=== PATIENT | female | born 1960 | race Caucasian/White ===

== ENCOUNTER 2017-09-26 08:28 | Inpatient (IN) | payer BC ==
[~2017-09-26] VITALS: Ht 162.6 cm; Wt 63.5 kg
[2017-09-26] MEDS ORDERED: DOXY100C2 PO ×2 (08:42→13:44)
[2017-09-26] MEDS ORDERED: D-ME473S63 PO (08:42)
[2017-09-26] MEDS ORDERED: GUAI118S20 PO (08:42)
[2017-09-26] MEDS ORDERED: ALBU8.5H8 IH (08:42)
[2017-09-26] MEDS ORDERED: LEVO-103 PO (08:43)
[2017-09-26] MEDS ORDERED: ONDANSETRON 4 MG/2 ML VIAL IV ONE (09:00)
[2017-09-26] MEDS ORDERED: MORPHINE SULFATE 2 MG/1 ML DISP.SYRIN IV ONE (09:00)
[2017-09-26] MEDS ORDERED: IV NORMAL SALINE 1000 ML BAG IV ONE ×2 (09:00→11:15)
[2017-09-26] MEDS ORDERED: MORPHINE SULFATE 4 MG/1 ML DISP.SYRIN ONE (09:02)
[2017-09-26] MEDS ORDERED: ONDANSETRON 4 MG/2 ML VIAL ONE (09:02)
--- NOTE | 2017-09-26 09:03 | NUR ---
PT IN ROUTE TO CT. ALL LABS DRAWN AND MEDS GIVEN. MD SHELLEY COMPLETED. AWAITING FURTHER MD ORDERS.
[2017-09-26 09:04] LABS: BASOPHILS # (AUTO) 0.1 K/uL (0.0-8.0); BASOPHILS % (AUTO) 1.2 % (0.0-2.0); EOSINOPHILS # (AUTO) 0.2 K/uL (0.0-0.7); EOSINOPHILS % (AUTO) 2.2 % (0.0-7.0); HEMATOCRIT 38.5 % (31.2-41.9); HEMOGLOBIN 13.8 g/dL (10.9-14.3); LYMPHOCYTES # (AUTO) 2.1 K/uL (20.0-40.0); LYMPHOCYTES % (AUTO) 29.1 % (20.5-51.5); MEAN CORPUSCULAR HEMOGLOBIN 32.1 uug (24.7-32.8); MEAN CORPUSCULAR HGB CONC 36 g/dL (32.3-35.6); MEAN CORPUSCULAR VOLUME 89.9 fL (75.5-95.3); MONOCYTES # (AUTO) 0.6 K/uL (2.0-10.0); NEUTROPHILS # (AUTO) 4.2 K/uL (1.8-8.9); NEUTROPHILS % (AUTO) 58.5 % (38.5-71.5); PLATELET COUNT (AUTO) 279 K/uL (179-408); RED BLOOD CELL COUNT(AUTO) 4.29 MIL/uL (3.63-4.92); WHITE BLOOD COUNT (AUTO) 7.2 K/uL (3.8-11.8)
[2017-09-26 09:17] LABS: BILIRUBIN,DIRECT 0.1 mg/dL (0.0-0.2); BILIRUBIN,TOTAL 0.5 mg/dL (0.2-1.0); POTASSIUM 3.5 mmol/L (3.5-5.1); TOTAL PROTEIN, SERUM 7.5 g/dL (6.4-8.2)
[2017-09-26] MEDS ORDERED: HYDROMORPHONE 1 MG/1 ML DISP.SYRIN IV ONE ×2 (09:30→11:15)
[2017-09-26] MEDS ORDERED: HYDROMORPHONE 1 MG/1 ML DISP.SYRIN ONE ×2 (09:40→11:33)
[2017-09-26 10:20] LABS: *BILIRUBIN,URIN NEGATIVE (NEGATIVE); *BLOOD, URINE NEGATIVE (NEGATIVE); *CLARITY,URINE CLEAR (CLEAR); *KETONES,URINE NEGATIVE (NEGATIVE); *PROTEIN,URINE NEGATIVE (NEGATIVE); *UROBILINOGEN,URINE 0.2 E.U./dl (NORMAL); LEUKOCYTE ESTERASE ,URINE NEGATIVE (NEGATIVE); NITRITE, URINE NEGATIVE (NEGATIVE); PH,URINE 7.5 (5.0-8.0); UGLUCOSE NEGATIVE (NEGATIVE)
[2017-09-26 10:34] LABS: *COLOR,URINE LIGHT YELLOW (YELLOW); BACTERIA,URINE NONE SEEN /HPF (NONE SEEN); RBC,URINE 0-3 /HPF (0-3); WBC,URINE 0-3 /HPF (0-3)
[2017-09-26 10:35] LABS: SQUAMOUS EPITHELIAL CELL,UR FEW /HPF (NONE SEEN)
[2017-09-26] MEDS ORDERED: METOCLOPRAMIDE HCL 10 MG/2 ML VIAL IV ONE (11:00)
--- NOTE | 2017-09-26 11:04 | NUR ---
PT IN BED. SPOUSE AT BEDSIDE. MD SANDERSON GIVING CONSULT BASED ON LAB/RAD RESULTS.
[2017-09-26] MEDS ORDERED: METOCLOPRAMIDE HCL 10 MG/2 ML VIAL ONE (11:10)
--- NOTE | 2017-09-26 12:17 | NUR ---
dr. drake talking to dr. su
--- NOTE | 2017-09-26 15:15 | NUR ---
PT TRANSFERED TO FLOOR IN STABLE CONDITION. PT STILL HAS SOME PRESSURE IN THE FLANK AREA BUT REFUSES MORE PAIN MED AT THIS TIME.
[2017-09-26 15:35] VITALS: BP 137/77
[2017-09-26] MEDS: HYDROMORPHONE 1 MG/1 ML DISP.SYRIN IV PRN ×2 (16:33→22:04)
[2017-09-26] MEDS: POTASSIUM CHLORIDE 20 MEQ in IV 1/2NS 1000 ML 1,000 ML IV PRN ×2 (17:42→18:34)
--- NOTE | 2017-09-26 18:30 | NUR ---
Pt is in no acute distress. Discussed plan of straining her urine, fall precaution, and proper pain management. Pt agreeable with plan of care. Oriented pt on how to use call light. Dr Villarreal saw pt for consultation. IVF infusing as ordered on left ac #20. Call light is within reach.
[2017-09-26 19:40] LABS: *BILIRUBIN,URIN NEGATIVE (NEGATIVE); *BLOOD, URINE 2+ (NEGATIVE); *CLARITY,URINE CLEAR (CLEAR); *COLOR,URINE YELLOW (YELLOW); *KETONES,URINE NEGATIVE (NEGATIVE); *PROTEIN,URINE 1+ (NEGATIVE); *UROBILINOGEN,URINE 0.2 E.U./dl (NORMAL); LEUKOCYTE ESTERASE ,URINE NEGATIVE (NEGATIVE); NITRITE, URINE NEGATIVE (NEGATIVE); PH,URINE 7.5 (5.0-8.0); UGLUCOSE NEGATIVE (NEGATIVE)
[2017-09-26 19:52] LABS: BACTERIA,URINE FEW /HPF (NONE SEEN); SQUAMOUS EPITHELIAL CELL,UR FEW /HPF (NONE SEEN)
[2017-09-26 20:04] VITALS: BP 135/75
[2017-09-26] MEDS ORDERED: DOXYCYCLINE HYCLATE 100 MG TABLET PO SCH (21:00)
[2017-09-26] MEDS: ZOLPIDEM 5 MG TABLET PO PRN (21:44)
[2017-09-26] MEDS ORDERED: ZOLPIDEM 5 MG TABLET ONE (22:05)
[2017-09-26] MEDS ORDERED: ONDANSETRON 4 MG/2 ML VIAL IV PRN (23:00)
[2017-09-27 04:42] VITALS: BP 125/69
--- NOTE | 2017-09-27 06:00 | NUR ---
new iv site placed, continue with iv fluids, strain all urine but no stone noted,encouraged increase fluid intake, pain now more on the abdomen. given dilaudid for pain with good relief and fall asleep.
[2017-09-27] MEDS: HYDROMORPHONE 1 MG/1 ML DISP.SYRIN IV PRN ×2 (06:02→13:30)
[2017-09-27] MEDS: LEVOTHYROXINE SODIUM 50 MCG TABLET PO SCH (06:02)
[2017-09-27 06:37] LABS: BASOPHILS % (AUTO) 0.6 % (0.0-2.0); EOSINOPHILS # (AUTO) 0.1 K/uL (0.0-0.7); EOSINOPHILS % (AUTO) 0.9 % (0.0-7.0); HEMATOCRIT 34.9 % (31.2-41.9); HEMOGLOBIN 12.3 g/dL (10.9-14.3); MEAN CORPUSCULAR HEMOGLOBIN 31.8 uug (24.7-32.8); MEAN CORPUSCULAR HGB CONC 35 g/dL (32.3-35.6); MEAN CORPUSCULAR VOLUME 90.5 fL (75.5-95.3); MONOCYTES # (AUTO) 0.8 K/uL (2.0-10.0); MONOCYTES % (AUTO) 10.8 % (0.0-11.0); NEUTROPHILS # (AUTO) 4.8 K/uL (1.8-8.9); NEUTROPHILS % (AUTO) 61.7 % (38.5-71.5); PLATELET COUNT (AUTO) 263 K/uL (179-408); RED BLOOD CELL COUNT(AUTO) 3.86 MIL/uL (3.63-4.92); WHITE BLOOD COUNT (AUTO) 7.8 K/uL (3.8-11.8)
[2017-09-27] MEDS: POTASSIUM CHLORIDE 20 MEQ in IV 1/2NS 1000 ML 1,000 ML IV PRN (06:43)
[2017-09-27 06:54] LABS: MAGNESIUM 1.9 mg/dL (1.8-2.4); PHOSPHOROUS 3.7 mg/dL (2.5-4.9)
[2017-09-27 07:01] LABS: CREATININE 0.9 mg/dL (0.6-1.3); POTASSIUM 3.6 mmol/L (3.5-5.1)
[2017-09-27] MEDS: PANTOPRAZOLE SODIUM 40 MG TABLET.DR PO SCH (07:38)
--- NOTE | 2017-09-27 07:40 | NUR ---
PT RECEIVED IN BED SLEEPING.V/S ARE STABLE.CALL LIGHT WITH IN REACH.
[2017-09-27 07:44] LABS: THYROID STIMULATING HORMONE 4.419 mIU/mL (0.358-3.740)
[2017-09-27 11:43] VITALS: BP 121/71
[2017-09-27] MEDS: TAMSULOSIN HCL 0.4 MG CAP.SR.24H PO SCH (13:28)
--- NOTE | 2017-09-27 14:00 | NUR ---
PT WALK IN THE HALLWAY PAR MD ORDERS,NO C/O PAIN NOTED.PT TOLERATED WELL
[2017-09-27] MEDS ORDERED: TAMSULOSIN HCL 0.4 MG CAP.SR.24H PO SCH (14:30)
[2017-09-27] MEDS: IV D5 1/2 NS 1000 ML 1,000 ML IV PRN (14:43)
[2017-09-27 16:01] VITALS: BP 132/70
[2017-09-27] MEDS ORDERED: HYDROMORPHONE 2 MG/1 ML DISP.SYRIN IV PRN (17:16)
--- NOTE | 2017-09-27 19:00 | NUR ---
Received patient in bed alert oriented able to make needs known, no sob no chest pain, cont on pain management of r side of abdomen, cont to strained urine. call light within reach.
[2017-09-27 20:00] VITALS: BP 130/75
[2017-09-27] MEDS: ZOLPIDEM 5 MG TABLET PO PRN (21:06)
[2017-09-28] MEDS: IV D5 1/2 NS 1000 ML 1,000 ML IV PRN ×2 (01:40→12:32)
[2017-09-28 05:58] LABS: BASOPHILS # (AUTO) 0.1 K/uL (0.0-8.0); BASOPHILS % (AUTO) 0.8 % (0.0-2.0); EOSINOPHILS # (AUTO) 0.1 K/uL (0.0-0.7); EOSINOPHILS % (AUTO) 1.9 % (0.0-7.0); HEMATOCRIT 34.6 % (31.2-41.9); HEMOGLOBIN 11.9 g/dL (10.9-14.3); LYMPHOCYTES # (AUTO) 2.4 K/uL (20.0-40.0); LYMPHOCYTES % (AUTO) 38.3 % (20.5-51.5); MEAN CORPUSCULAR HEMOGLOBIN 31.1 uug (24.7-32.8); MEAN CORPUSCULAR HGB CONC 34 g/dL (32.3-35.6); MEAN CORPUSCULAR VOLUME 90.5 fL (75.5-95.3); MONOCYTES # (AUTO) 0.5 K/uL (2.0-10.0); MONOCYTES % (AUTO) 8.7 % (0.0-11.0); NEUTROPHILS # (AUTO) 3.2 K/uL (1.8-8.9); NEUTROPHILS % (AUTO) 50.3 % (38.5-71.5); PLATELET COUNT (AUTO) 243 K/uL (179-408); RED BLOOD CELL COUNT(AUTO) 3.82 MIL/uL (3.63-4.92); WHITE BLOOD COUNT (AUTO) 6.3 K/uL (3.8-11.8)
[2017-09-28 06:03] LABS: CREATININE 0.9 mg/dL (0.6-1.3); MAGNESIUM 1.7 mg/dL (1.8-2.4); PHOSPHOROUS 3.6 mg/dL (2.5-4.9); POTASSIUM 3.8 mmol/L (3.5-5.1)
[2017-09-28] MEDS: LEVOTHYROXINE SODIUM 50 MCG TABLET PO SCH (06:14)
[2017-09-28] MEDS: PANTOPRAZOLE SODIUM 40 MG TABLET.DR PO SCH (06:14)
[2017-09-28 06:16] LABS: URIC ACID 3.8 mg/dL (2.6-6.0)
[2017-09-28 06:40] VITALS: BP 151/84
--- NOTE | 2017-09-28 07:10 | NUR ---
PATIENT SLEPT MOST THE NIGHT, CONT ON PAIN MANAGEMENT, NO SOB NO CHEST PAIN, PATIENT VOIDING BUT NO PASSING OF STONE YET, CONT TO MONITOR. CALL LIGHT WITHIN REACH.
--- NOTE | 2017-09-28 07:40 | NUR ---
PT RECEIVED IN BED SLEEPING.V/S ARE STABLE.CALL LIGHT WITH IN REACH.
[2017-09-28] MEDS: ACETAMINOPHEN 325 MG TABLET PO PRN ×2 (10:41→20:29)
[2017-09-28 11:14] VITALS: BP 135/74
[2017-09-28] MEDS: DOXYCYCLINE HYCLATE 100 MG TABLET PO SCH ×2 (12:19→20:13)
--- NOTE | 2017-09-28 13:00 | NUR ---
pt seen by dr Villarreal ,new orders received noted and carried out.
[2017-09-28] MEDS: TAMSULOSIN HCL 0.4 MG CAP.SR.24H PO SCH (13:35)
[2017-09-28] MEDS: MAGNESIUM SULFATE/D5W 100 ML IV SCH ×2 (15:17→16:11)
[2017-09-28 15:26] VITALS: BP 138/75
[2017-09-28 15:26] LABS: *BILIRUBIN,URIN NEGATIVE (NEGATIVE); *BLOOD, URINE NEGATIVE (NEGATIVE); *CLARITY,URINE CLEAR (CLEAR); *COLOR,URINE LIGHT YELLOW (YELLOW); *KETONES,URINE NEGATIVE (NEGATIVE); *PROTEIN,URINE NEGATIVE (NEGATIVE); *UROBILINOGEN,URINE 0.2 E.U./dl (NORMAL); LEUKOCYTE ESTERASE ,URINE NEGATIVE (NEGATIVE); NITRITE, URINE NEGATIVE (NEGATIVE); PH,URINE 7.5 (5.0-8.0); UGLUCOSE NEGATIVE (NEGATIVE)
[2017-09-28 15:32] LABS: BACTERIA,URINE FEW /HPF (NONE SEEN); RBC,URINE 0-3 /HPF (0-3); SQUAMOUS EPITHELIAL CELL,UR FEW /HPF (NONE SEEN); WBC,URINE 0-3 /HPF (0-3)
[2017-09-28] MEDS ORDERED: NORMAL SALINE FLUSH 10 ML DISP.SYRIN ONE (15:45)
[2017-09-28] MEDS ORDERED: IV NORMAL SALINE 250 ML IV ONE (15:46)
[2017-09-28] MEDS ORDERED: IOHEXOL 300MG/ML 100 ML INFUS..BTL ONE (15:46)
--- NOTE | 2017-09-28 19:00 | NUR ---
RECEIVED PATIENT IN BED ALERT ORIENTED, VOIDING FREELY, CONT ON PAIN MANAGEMENT, CONTINENT OF BOWEL AND BLADDER, CALL LIGHT WITHIN REACH.
[2017-09-28 20:35] VITALS: BP 142/95
[2017-09-28] MEDS: ZOLPIDEM 5 MG TABLET PO PRN (21:35)
[2017-09-29] MEDS: IV D5 1/2 NS 1000 ML 1,000 ML IV PRN (01:00)
[2017-09-29 04:00] VITALS: BP 158/96
[2017-09-29] MEDS: LEVOTHYROXINE SODIUM 50 MCG TABLET PO SCH (06:02)
[2017-09-29] MEDS: PANTOPRAZOLE SODIUM 40 MG TABLET.DR PO SCH (06:02)
[2017-09-29 06:51] LABS: BASOPHILS % (AUTO) 0.6 % (0.0-2.0); EOSINOPHILS # (AUTO) 0.1 K/uL (0.0-0.7); EOSINOPHILS % (AUTO) 2.4 % (0.0-7.0); HEMATOCRIT 39.6 % (31.2-41.9); LYMPHOCYTES % (AUTO) 33.5 % (20.5-51.5); MEAN CORPUSCULAR HEMOGLOBIN 31.5 uug (24.7-32.8); MEAN CORPUSCULAR HGB CONC 35 g/dL (32.3-35.6); MEAN CORPUSCULAR VOLUME 89.4 fL (75.5-95.3); MONOCYTES # (AUTO) 0.5 K/uL (2.0-10.0); MONOCYTES % (AUTO) 8.7 % (0.0-11.0); NEUTROPHILS # (AUTO) 3.4 K/uL (1.8-8.9); NEUTROPHILS % (AUTO) 54.8 % (38.5-71.5); PLATELET COUNT (AUTO) 274 K/uL (179-408); RED BLOOD CELL COUNT(AUTO) 4.43 MIL/uL (3.63-4.92); WHITE BLOOD COUNT (AUTO) 6.1 K/uL (3.8-11.8)
--- NOTE | 2017-09-29 07:20 | NUR ---
Received client in bed awake, alert and oriented times 4, able to communicate needs. No apparent signs and symptoms of pain, distress, discomfort or SOB. Bed at lowest position for safety and call light within reach for assistance. Discharge is the plan for today
[2017-09-29 07:31] LABS: CREATININE 0.9 mg/dL (0.6-1.3); MAGNESIUM 2.1 mg/dL (1.8-2.4); POTASSIUM 3.4 mmol/L (3.5-5.1)
[2017-09-29] MEDS: DOXYCYCLINE HYCLATE 100 MG TABLET PO SCH (09:01)
[2017-09-29] MEDS: ACETAMINOPHEN 325 MG TABLET PO PRN (11:02)
--- NOTE | 2017-09-29 11:05 | NUR ---
Tylenol given because client stated she had a headache
[2017-09-29 11:36] VITALS: BP 147/89
[2017-09-29] MEDS ORDERED: POTASSIUM CHLORIDE 20 MEQ TAB.PRT.SR PO ONE (12:45)
[2017-09-29] MEDS ORDERED: TAMS-3 PO (14:06)
[2017-09-29] MEDS: TAMSULOSIN HCL 0.4 MG CAP.SR.24H PO SCH (14:38)
--- NOTE | 2017-09-29 15:35 | NUR ---
Client left via wheelchair guided by a CASE MANAGEMENT RN down to lobby where her would pick her. Client was being discharged with discharge orders. In stable condition
== END 2017-09-29 15:45 | disposition home or self-care (01) | DRG 694 ==
LOC: ER 08:28 → MED 15:17
PROVIDERS: ADMIT Internal Medicine; ATTEND Internal Medicine
DX: N13.2 Hydronephrosis with renal and ureteral calculous obstruction (principal); D25.9 Leiomyoma of uterus, unspecified; E03.9 Hypothyroidism, unspecified; R73.9 Hyperglycemia, unspecified; J04.0 Acute laryngitis; J40 Bronchitis, not specified as acute or chronic
CPT/HCPCS: 36415; 71045; 74018; 76770; 83550; 83690; 83735; 84100; 84443; 84550; 85025; 87086; A4663; J1170; J2270; J2405; J2765; J3475; J3480; J3490; J7030; J7050; Q9967